=== PATIENT | male | born 1995 | race Two or more races ===

== ENCOUNTER 2017-05-24 10:19 | Emergency (ER) | payer OTHER ==
[~2017-05-24] VITALS: Ht 172.7 cm; Wt 63.5 kg
[2017-05-24 10:23] VITALS: BP 126/72
--- NOTE | 2017-05-24 11:15 | NUR ---
PT TAKEN TO CT.
== END 2017-05-24 13:58 ==
LOC: ER 10:23
DX: S09.8XXA Other specified injuries of head, initial encounter (principal); W18.39XA Other fall on same level, initial encounter; Y93.89 Activity, other specified; Y92.89 Other specified places as the place of occurrence of the external cause; Y99.8 Other external cause status; S00.83XA Contusion of other part of head, initial encounter; F10.129 Alcohol abuse with intoxication, unspecified; T42.4X6A Underdosing of benzodiazepines, initial encounter; Z91.138 Patient's unintentional underdosing of medication regimen for other reason; F17.200 Nicotine dependence, unspecified, uncomplicated
CPT/HCPCS: 70450; 99284; A4606; Z7610